=== PATIENT | male | born 1990 | race Caucasian/White ===

== ENCOUNTER → 2018-01-27 | Outpatient (CLI) | payer OTHER ==
[2018-01-27 11:04] LABS: Basophils % (A) 1 %; Eosinophils # (A) 0.3 k/uL (0-0.7); Eosinophils % (A) 4 %; HCT 49.5 % (39.0-53.0); Lymphocytes # (A) 2.1 k/uL (1.0-4.8); Lymphocytes % (A) 32 %; MCH 31.5 pg (25.0-35.0); MCHC 34.3 g/dL (31.0-37.0); MCV 91.9 fL (80.0-100.0); Mean Platelet Volume 6.7; Monocytes # (A) 0.7 k/uL (0-1.0); Monocytes % (A) 10 %; Neutrophils # (A) 3.3 k/uL (1.3-7.7); Neutrophils % (A) 50 %; Platelet Count 217 k/uL (150-450); RBC 5.38 m/uL (4.30-5.90); RDW 13.7 % (11.5-15.5); WBC 6.6 k/uL (3.8-10.6)
[2018-01-27 11:30] LABS: ALT 51 U/L (21-72); AST 51 U/L (17-59); Albumin 4.7 g/dL (3.5-5.0); Alkaline Phosphatase 61 U/L (38-126); Anion Gap 15 mmol/L; Blood Urea Nitrogen 16 mg/dL (9-20); Calcium 10.3 mg/dL (8.4-10.2); Carbon Dioxide 30 mmol/L (22-30); Chloride 100 mmol/L (98-107); Cholesterol 214 mg/dL (<200); GGT 57 U/L (15-73); Glucose 120 mg/dL (74-99); HDL Cholesterol 42 mg/dL (40-60); LDH 417 U/L (313-618); LDL Cholesterol,Calculated 129 mg/dL (0-99); Potassium 3.8 mmol/L (3.5-5.1); Sodium 145 mmol/L (137-145); Total Bilirubin 1.2 mg/dL (0.2-1.3); Total Protein 7.9 g/dL (6.3-8.2); Triglycerides 214 mg/dL (<150)
[2018-01-27 11:38] LABS: Appearance,Urine Clear (Clear); Bilirubin,Urine Negative (Negative); Blood,Urine Negative (Negative); Color,Urine Yellow; Glucose,Urine (UA) Negative (Negative); Ketones,Urine Negative (Negative); Leukocyte Esterase,Urine Negative (Negative); Mucus,Urine Many /hpf; Nitrite,Urine Negative (Negative); PH, Urine 7.5 (5.0-8.0); Protein,Urine 1+ (Negative); RBC,Urine 1 /hpf (0-5); Specific Gravity,Urine 1.029 (1.001-1.035); Squamous Epithelial Cell,Urine <1 /hpf (0-4); WBC,Urine 1 /hpf (0-5)
[2018-01-29 01:40] LABS: Hemoglobin A1C 5.5 % (4.0-6.0)
== END | disposition home or self-care (01) ==
LOC: LABWHC1 10:31
PROVIDERS: ATTEND Psychiatry & Neurology Psychiatry
DX: F25.9 Schizoaffective disorder, unspecified (principal); Z79.899 Other long term (current) drug therapy
CPT/HCPCS: 36415; 80053; 80061; 81001; 82977; 83036; 83525; 83615; 84146; 84702; 85025

== ENCOUNTER 2022-08-28 19:36 | Inpatient (IN) | payer BC, MEDICAID ==
[2022-08-28] MEDS ORDERED: ZIPRASIDONE 20 MG VIAL IM STA (20:25)
--- NOTE | 2022-08-28 20:40 | ED ---
Psych HPI - General Chief Complaint: Psychiatric Symptoms Stated Complaint: Mental Health Time Seen by Provider: 08/28/22 19:53 Source: patient, family, RN notes reviewed Mode of arrival: ambulatory - History of Present Illness Initial Comments: Patient is a 32-year-old male who is brought to the emergency department by his father for worsening manic behavior and paranoid delusions. He has not been here in the hospital for approximately 8 years as he has been doing well and was taking his medication. His father reports that he was taking his medication up until approximately 3 months ago though further discussion with [facility] reveals that he has not been established there for approximately 1 year and has not resumed his Abilify injections though stating that he restarted taking the medication 2 days ago. He admits to alcohol ingestion approximately 4-6 shots prior to coming to the hospital today. He has been evaluated multiple times here at this facility in the past and I been diagnosed with schizophrenia versus rule out bipolar disorder with psychosis. Along with possible alcohol abuse disorder. He has no other significant past medical history with the exc eption of his mental health diagnoses. - Related Data Home Medications Medication Instructions Recorded Confirmed ARIPiprazole [Abilify] 400 mg IM DIRECTED 01/11/15 06/10/18 Atenolol/Chlorthalidone 1 each PO DAILY 04/07/18 06/10/18 [Atenolol-Chlorthalidone 50-25] lisinopriL [Zestril] 5 mg PO DAILY 04/07/18 06/10/18 Allergies Allergy/AdvReac Type Severity Reaction Status Date / Time No Known Allergies Allergy Verified 08/28/22 19:42 Review of Systems ROS Statement: Those systems with pertinent positive or pertinent negative responses have been documented in the HPI. ROS Other: All systems not noted in ROS Statement are negative. Past Medical History Past Medical History: No Reported History History of Any Multi-Drug Resistant Organisms: None Reported Past Surgical History: No Surgical Hx Reported Past Anesthesia/Blood Transfusion Reactions: No Reported Reaction Past Psychological History: Anxiety, Bipolar, Depression, Schizophrenia Smoking Status: Never smoker Past Alcohol Use History: Heavy Past Drug Use History: None Reported General Exam Limitations: no limitations General appearance: alert, in no apparent distress, appears intoxicated Head exam: Present: atraumatic, normocephalic, normal inspection Eye exam: Present: normal appearance, PERRL. Absent: scleral icterus, conjunctival injection, periorbital swelling ENT exam: Present: normal exam, mucous membranes moist Neck exam: Present: normal inspection. Absent: tenderness, meningismus, ly mphadenopathy Respiratory exam: Present: normal lung sounds bilaterally. Absent: respiratory distress, wheezes, rales, rhonchi, stridor Cardiovascular Exam: Present: regular rate, normal rhythm, normal heart sounds. Absent: systolic murmur, diastolic murmur, rubs, gallop, clicks GI/Abdominal exam: Present: soft, normal bowel sounds. Absent: distended, tenderness, guarding, rebound, rigid Rectal exam: Present: deferred Extremities exam: Present: normal inspection. Absent: pedal edema, joint swelling Back exam: Present: normal inspection Neurological exam: Present: alert, oriented X3, CN II-XII intact Expanded Focused psych exam: Present: paranoid, restlessness, flight of ideas Skin exam: Present: warm, dry, intact, normal color. Absent: rash Course Vital Signs 08/28/22 08/28/22 19:42 20:01 Temperature 97.7 F Pulse Rate 110 H 68 Respiratory 16 16 Rate Blood Pressure 167/108 145/68 O2 Sat by Pulse 98 99 Oximetry Medical Decision Making - Medical Decision Making Patient is a 32-year-old male presents to the emergency room for paranoid delusions and occasional aggressive behavior. He is brought in by his father. He has been off of his psychiatric medications for approximately 1 year. Patient currently intoxicated with a breath alcohol level of 0.112. Will wait for EPS evaluation until patient sober. No other medical indication for further diagnostic testing or laboratory studies this time. One sober will clear [facility] for evaluation. EPS evaluation completed once patient was sober. Patient to be admitted to mental health. Will discharge patient from the emergency room with plan for admission to mental health. Case discussed with Dr. Jiang. Disposition Clinical Impression: Psychosis, Schizophrenia, Bipolar disorder Disposition: TRANSFER TO PSYCH HOSP/UNIT Condition: Stable Is patient prescribed a controlled substance at d/c from ED?: No Referrals: None,Stated [Primary Care Provider] - 1-2 days Time of Disposition: 00:57
[2022-08-29] MEDS ORDERED: NICOTINE 21MG/24HR PATCH TRANSDERM STA ×2 (00:53→13:26)
[2022-08-29 02:53] LABS: Appearance,Urine Clear (Clear); Bilirubin,Urine Negative (Negative); Blood,Urine Negative (Negative); Color,Urine Colorless; Glucose,Urine (UA) Negative (Negative); Ketones,Urine Negative (Negative); Leukocyte Esterase,Urine Negative (Negative); Nitrite,Urine Negative (Negative); Protein,Urine Negative (Negative); Specific Gravity,Urine 1.002 (1.001-1.035); Urobilinogen,Urine <2.0 mg/dL (<2.0)
[2022-08-29 03:38] LABS: Amphetamine Screen,Urine Not Detected (NotDetected); Barbiturate Screen,Urine Not Detected (NotDetected); Benzodiazepines Screen,Urine Not Detected (NotDetected); Cocaine Screen,Urine Not Detected (NotDetected); Methadone Screen, Urine Not Detected (NotDetected); Opiate Screen,Urine Not Detected (NotDetected); Oxycodone Screen, Urine Not Detected (NotDetected); Phencyclidine Screen,Urine Not Detected (NotDetected); Tricyclic Antidepressant,Urine Not Detected (NotDetected); Urn Cannabinoid Scrn Detected (NotDetected)
[2022-08-29] MEDS ORDERED: NICOTINE 14MG/24HR PATCH TRANSDERM STA (13:20)
[2022-08-29] MEDS ORDERED: HALOPERIDOL LACTATE 5 MG/ML 1 ML VIAL IM PRN (13:57)
[2022-08-29] MEDS ORDERED: MAG HYDROX/AL HYDROX/SIMETH 30 ML CUP PO PRN (13:57)
[2022-08-29] MEDS ORDERED: ACETAMINOPHEN TAB 325 MG TAB PO PRN (13:57)
[2022-08-29] MEDS ORDERED: MAGNESIUM HYDROXIDE 2,400 MG/10 ML CUP PO PRN (13:57)
[2022-08-29] MEDS ORDERED: LORazepam 2 MG/ML INJ IM PRN (14:02)
[2022-08-29] MEDS ORDERED: haloperidoL 5 MG TAB PO PRN (14:03)
[2022-08-29] MEDS ORDERED: ARIPiprazole 5 MG TAB PO ONE (14:15)
[2022-08-29] MEDS: NICOTINE GUM (POLACRILEX) 2 MG GUM BUCCAL PRN ×2 (15:18→20:41)
[2022-08-29] MEDS: ARIPiprazole 10 MG TAB PO SCH (20:37)
[2022-08-29] MEDS: LORazepam 1 MG TAB PO PRN (23:00)
[2022-08-30] MEDS: NICOTINE GUM (POLACRILEX) 2 MG GUM BUCCAL PRN ×4 (07:59→19:59)
[2022-08-30] MEDS: NICOTINE 14MG/24HR PATCH TRANSDERM SCH (07:59)
[2022-08-30] MEDS ORDERED: ARIPiprazole 5 MG TAB PO SCH (09:00)
[2022-08-30 10:13] LABS: Basophils % (A) 0 %; Eosinophils # (A) 0.1 k/uL (0-0.7); Eosinophils % (A) 1 %; HCT 43.3 % (39.0-53.0); HGB 14.5 gm/dL (13.0-17.5); Lymphocytes # (A) 0.8 k/uL (1.0-4.8); Lymphocytes % (A) 14 %; MCH 30.5 pg (25.0-35.0); MCHC 33.4 g/dL (31.0-37.0); MCV 91.1 fL (80.0-100.0); Mean Platelet Volume 7.1; Monocytes # (A) 0.4 k/uL (0-1.0); Monocytes % (A) 7 %; Neutrophils # (A) 4.3 k/uL (1.3-7.7); Neutrophils % (A) 76 %; Platelet Count 238 k/uL (150-450); RBC 4.75 m/uL (4.30-5.90); RDW 13.2 % (11.5-15.5); WBC 5.7 k/uL (3.8-10.6)
[2022-08-30 10:23] LABS: ALT 17 U/L (4-49); AST 27 U/L (17-59); African American GFR (CKD) >90 (>60 ml/min/1.73 sqM); Albumin 4.6 g/dL (3.5-5.0); Alkaline Phosphatase 61 U/L (38-126); Anion Gap 11 mmol/L; Blood Urea Nitrogen 9 mg/dL (9-20); Calcium 9.5 mg/dL (8.4-10.2); Carbon Dioxide 28 mmol/L (22-30); Chloride 100 mmol/L (98-107); Glucose 156 mg/dL (74-99); Non-African American GFR(CKD) >90 (>60 ml/min/1.73 sqM); Potassium 4.1 mmol/L (3.5-5.1); Sodium 139 mmol/L (137-145); Total Bilirubin 1.1 mg/dL (0.2-1.3); Total Protein 7.1 g/dL (6.3-8.2)
--- NOTE | 2022-08-30 14:25 | P.HP ---
Psychiatric H&P - . H&P Date: 08/29/22 History & Physical: IDENTIFYING DATA: Patient is a single 32 year old male who was admitted to the MHU after presenting to the ER by his father for worsening manic and psychotic symptoms. HPI: Patient presented to the hospital on 08/28/2022 with his father due to worsening manic behavior and paranoid delusions. He was previously hospitalized here in 2013 and reportedly had been doing well since then on regime on monthly Abilify Maintena injections, until approximately three months ago. His father petitioned him and included an attached page with several examples of patient's bizarre behaviors, as well as a video shown to nurses of patient's erratic behaviors while in the car. Per petition by father, patient was paranoid that he had asbestos in the murguia of his apartment, that his [employer] clients were being abused by an elderly businessman, has a woman do "witchcraft" and "cast a spell" in his apartment, believed he was going to change the world with Vitamin D, stated his landlord was trying to get a neighbor into his apartment to perform witchcraft in his apartment to try to drive him away, believes someone at [employer] was trying to get him fired, yelling at family in the car while they were driving him and telling them they are going to hell, tried jumping out of a moving car twice, and crawled through the sunroof of the car. On my assessment on 08/30/2022, patient appears irritable, anxious, argumentative, intrusive, paranoid and frequently contradicts himself. He has poor insight and judgment. He is a fair historian, and appears to be minimizing the severity of his psychotic symptoms in order to be discharged. He insists he does not need to be hospitalized here and can be discharged so he can go to his mental health appointment on Wednesday. He then repeatedly requests to be transferred to [facility]. He is difficult to redirect, continues to focus on transferring to [facility]. His reasoning seems irrational, he eventually reports he knows someone who works here, gives the name of the person to the nurse here who reports noone by that name works here. At this time, patient denies any suicidal or homicidal ideations intent or plan. At this time, patient denies any auditory or visual hallucinations. He express paranoid ideations, and states several times "something isn't right here, something isn't right here, I need to leave..." Patient admits to using marijuana and Kratom, but does not elaborate on use. 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 Patient reports he has been getting his Abilify Maintena 400 mg IM injection every month until about 3 months ago. He received his May injection, but missed his June and July injections, which he states was due to being "tight on money", but reports he received an Abilify Maintenna 400 mg IM in the past week (exact date of injection not known at this time) without oral Abilify supplementation. He started to show bizarre behaviors at work and reports [employer] has recommended to him that he take FMLA. On discussing voluntary vs involuntary admission, he continued to be argumentative and refused to sign the formal voluntary application. PAST PSYCHIATRIC HISTORY: Past diagnosis with bipolar and schizophrenia. Past medications: Abilify, Abilify Maintena, Seroquel, [place], Celexa, Lexapro, Risperdal, lamictal Psychiatric outpatient follow-up: [facility] ([facility]), previously with Dr. Marin at [employer] Suicide attempts: 2002 (overdose on Seroquel while using alcohol) PMH: Past Medical History: No Reported History History of Any Multi-Drug Resistant Organisms: None Reported Past Surgical History: No Surgical Hx Reported Past Anesthesia/Blood Transfusion Reactions: No Reported Reaction Past Psychological History: Anxiety, Bipolar, Depression, Schizophrenia Smoking Status: Never smoker Past Alcohol Use History: Heavy Past Drug Use History: None Reported ALLERGIES: as per EMR CHEMICAL DEPENDENCY HISTORY: Per records, he has a history of heavy alcohol abuse. He also admits to recent marjuana use as well as synthetic marijuan. UDS is positive for THC. FAMILY PSYCHIATRIC/SUBSTANCE USE HISTORY: Not known at this time. 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 Arrested twice for DUIs in his early 20's, reports he does not have a moving van driver's license for this reason. Also has a history of breaking/entering charge and probation violation. Attended college for psychology at [employer] MENTAL STATUS EXAM: General Appearance: Patient appears to be stated age, well-built, long shaggy hair with eyeglasses, fair hygiene and grooming. Behavior: Patient is seated, but is restless, intrusive, argumentative and upset. Speech: Patient's speech is fluent and pressured. Mood/Affect: Patient reports their mood is irritable, affect is congruent and labile. Suicidality/Homicidality: Patient denies having any homicidal ideation intent or plan. Denies any suicidal ideations, intent or plan . Perceptions: Patient denies any visual hallucinations and denies any auditory hallucinations. Though process: Circumstantial, derails easily, argumentative Thought content: Irrational, paranoid delusions Memory and concentration: AOX3, grossly intact for the purposes of this session. Judgment and insight: Poor STRENGTHS/WEAKNESSES: Strength is that patient is resilient, has housing and college education. Weakness is that patient has poor judgment and is impulsive. INTELLECT: Average IMPRESSIONS: Bipolar I disorder, current episode mixed with psychotic features Rule out schizoaffective disorder, bipolar type Alcohol use disorder, severe Cannabis use disorder PLAN: -Patient is admitted under involuntary status to MHU for stabilization of psychiatric symptoms and safety. Patient has NOT signed adult voluntary form. A second certification was completed and along with petition will be filed for court. He did sign the medication consent and is placed in patient's chart. -Medications: He reports he received his Abilify Maintena 400 mg IM in the past week (will need to be confirmed with his outpatient provider on Wednesday), after missing two monthly doses. Will start patient on oral Abilify 10 mg po daily for 14 days to bridge patient back onto monthly injections due to missing two monthly doses. He would also benefit from a mood stabilizer, however he is too argumentative at this time to discuss this medication. -Ativan and Haldol PRN for agitation/aggression -Patient was counselled on substance abuse and desired to cut back on use -Patient was informed of the risks, benefits and side effects of the medication and patient verbally consented to taking the medications. Patient signed med consent form and was placed in chart. -Internal Medicine consult to perform medical evaluation and physical. -NRT - not needed since he does not smoke cigarettes. -SW on board for discharge planning. Encourage patient to participate in groups to work on coping skills. Will await deferral and court date. Allergies Allergy/AdvReac Type Severity Reaction Status Date / Time No Known Allergies Allergy Verified 08/28/22 19:42 Vital Signs Temp 98.2 F 08/29/22 13:49 Pulse 68 08/28/22 20:01 Resp 18 08/29/22 13:50 BP 167/87 08/29/22 13:49 Pulse Ox 96 08/29/22 13:49 FiO2 Intake & Output 08/29/22 08/29/22 08/30/22 06:59 18:59 06:59 Weight 86.183 kg 84.6 kg Laboratory Last Values Urine Color Colorless 08/29/22 02:45 Urine Appearance Clear (Clear) 08/29/22 02:45 Urine pH 5.0 (5.0-8.0) 08/29/22 02:45 Ur Specific Minter 1.002 (1.001-1.035) 08/29/22 02:45 Urine Protein Negative (Negative) 08/29/22 02:45 Urine Glucose (UA) Negative (Negative) 08/29/22 02:45 Urine Ketones Negative (Negative) 08/29/22 02:45 Urine Blood Negative (Negative) 08/29/22 02:45 Urine Nitrite Negative (Negative) 08/29/22 02:45 Urine Bilirubin Negative (Negative) 08/29/22 02:45 Urine Urobilinogen <2.0 mg/dL (<2.0) 08/29/22 02:45 Ur Leukocyte Esterase Negative (Negative) 08/29/22 02:45 Urine Opiates Screen Not Detected (NotDetected) 08/29/22 02:45 Ur Oxycodone Screen Not Detected (NotDetected) 08/29/22 02:45 Urine Methadone Screen Not Detected (NotDetected) 08/29/22 02:45 Ur Propoxyphene Screen Not Detected (NotDetected) 08/29/22 02:45 Ur Barbiturates Screen Not Detected (NotDetected) 08/29/22 02:45 U Tricyclic Antidepress Not Detected (NotDetected) 08/29/22 02:45 Ur Phencyclidine Scrn Not Detected (NotDetected) 08/29/22 02:45 Ur Amphetamines Screen Not Detected (NotDetected) 08/29/22 02:45 U Methamphetamines Scrn Not Detected (NotDetected) 08/29/22 02:45 U Benzodiazepines Scrn Not Detected (NotDetected) 08/29/22 02:45 Urine Cocaine Screen Not Detected (NotDetected) 08/29/22 02:45 U Marijuana (THC) Screen Detected (NotDetected) H 08/29/22 02:45 Coronavirus (PCR) Not Detected (Not Detectd) 08/29/22 02:50 08/29/22 20:16 08/30/22 13:35
[2022-08-30 17:24] LABS: Chol/HDL Ratio 3.92 Ratio; LDL Cholesterol,Calculated 139.5 mg/dL (0.0-131.0)
[2022-08-30] MEDS: ARIPiprazole 10 MG TAB PO SCH (19:59)
[2022-08-30] MEDS: LORazepam 1 MG TAB PO PRN (20:26)
--- NOTE | 2022-08-30 21:01 | P.PN ---
Progress Note - Text Progress Note Date: 08/30/22 Interval history: Patient was seen wondering the hallway and was directable and agreeable to speak with food writer. He appears calmer and more cooperative today since starting oral Abilify 10mg daily in addition to his Abilify Maintena injection. Mood is improved today however affect is blunted. His thoughts are more linear and coherent today. At this time patient denies any suicidal or homicidal ideations, intent or plan. Denies any auditory or visual hallucinations. Patient denies any side effects from the medications and has been compliant with meds. He attended about half of the groups offered today and behaved appropriately in group today. He continues to be discharge focused and asks if his father can pick him up today. He inquires his work and whether he should return to work immediately after discharge and we discussed applying for FMLA. Mental status exam: General Appearance: Patient appears to be stated age, well-built, long shaggy hair with eyeglasses, improved hygiene and grooming. Behavior: Patient is calmer today but continues to be discharge focused and somewhat intrusive. Speech: Patient's speech is fluent and non-pressured. Mood/Affect: Patient reports their mood is improved, affect is congruent and blunted. Suicidality/Homicidality: Patient denies having any homicidal ideation intent or plan. Denies any suicidal ideations, intent or plan . Perceptions: Patient denies any visual hallucinations and denies any auditory hallucinations. Though process: More linear and coherent than yesterday Thought content: More rational and goal-directed, not argumentative like yesterday, discharge focused. Memory and concentration: AOX3, grossly intact for the purposes of this session. Judgment and insight: improving mildly Assessment/Plan: Continue with current diagnosis. Patient continues to meet criteria for inpatient psychiatric admission for symptom stabilization and safety. Patient will be maintained on current psychotropic medication regimen. Monitor for medication compliance and for any psychotropic medication side effects. Will continue to monitor ongoing response to treatment. Encouraged participation in milieu.
[2022-08-31] MEDS: NICOTINE GUM (POLACRILEX) 2 MG GUM BUCCAL PRN ×6 (02:28→20:25)
--- NOTE | 2022-08-31 02:36 | P.HPIM ---
History of Present Illness H&P Date: 08/31/22 Chief Complaint: Medical evaluation 32-year-old male with history of bipolar disorder Patient comes in for evaluation due to manic episode patient is known to have bipolar disorder, statin was having bizarre behavior with concerns regarding acute psychosis. Otherwise patient denies any suicidal ideation denies any fevers chills coughing nausea vomiting abdominal pain diarrhea denies any abdominal pain chest pain or trouble breathing Blood work reviewed showed hyperlipidemia Review of Systems Pertinent positives as noted in HPI. All other systems were reviewed and are negative Past Medical History Past Medical History: Hypertension History of Any Multi-Drug Resistant Organisms: None Reported Past Surgical History: No Surgical Hx Reported Past Anesthesia/Blood Transfusion Reactions: No Reported Reaction Past Psychological History: Anxiety, Bipolar, Depression, Schizophrenia Smoking Status: Vaper Past Alcohol Use History: Heavy Additional Past Alcohol Use History / Comment(s): Teo reports, "I am an alcoholic and it often gets me in trouble". Past Drug Use History: None Reported - Past Family History Family Additional Family Medical History / Comment(s): Denies any history of CAD Medications and Allergies Home Medications Medication Instructions Recorded Confirmed Type ARIPiprazole [Abilify] 400 mg IM DIRECTED 01/11/15 08/30/22 History lisinopriL [Zestril] 5 mg PO DAILY 04/07/18 08/30/22 History Allergies Allergy/AdvReac Type Severity Reaction Status Date / Time No Known Allergies Allergy Verified 08/28/22 19:42 Physical Exam Vitals: Vital Signs Pulse Resp BP 08/30/22 08:02 108 H 18 135/84 Intake and Output 08/30/22 08/30/22 08/31/22 14:59 22:59 06:59 Other: Weight 84.4 kg Constitutional: No acute distress, conversant, pleasant Eyes: Anicteric sclerae, moist conjunctiva, Pupils equal round reactive to light ENMT: NC/AT Oropharynx clear, no erythema, or exudates Neck: Supple, FROM, no masses, or JVD No carotid bruits No thyromegaly Lungs: Clear to auscultation Clear to percussion Normal respiratory effort, no accessory muscle use Cardiovascular: Heart regular in rate and rhythm, No murmurs, gallops, or rubs No peripheral edema Abdominal: Soft Nontender, no guarding, rebound or rigidity Abdomen moving with respiration Normoactive bowel sounds No hepatomegaly, No splenomegaly No palpable mass No abdominal wall hernia noted Skin: Normal temperature, tone, texture, turgor No induration No subcutaneous nodules No rash, lesions No ulcers Extremities: No digital cyanosis No clubbing Pedal pulses intact and symmetrical Radial pulses intact and symmetrical No calf tenderness Psychiatric: Alert and oriented to person, place and time Appropriate affect fair judgement Neuro Muscles Strength 5/5 in all 4 extremities Sensation to light touch grossly present throughout Cranial nerves II-XII grossly intact No focal sensory deficits Lymphatics: no palpable cervical or supraclavicular , or inguinal lymph nodes Results CBC & Chem 7: 08/30/22 09:49 08/30/22 09:49 Labs: Abnormal Lab Results - Last 24 Hours (Table) 08/30/22 08/30/22 Range/Units 09:49 09:49 Lymphocytes # 0.8 L (1.0-4.8) k/uL Glucose 156 H (74-99) mg/dL Cholesterol 216.00 H (0.00-200.00) mg/dL LDL Cholesterol, Calc 139.5 H (0.0-131.0) mg/dL Thrombosis Risk Factor Assmnt - Choose All That Apply Any of the Below Risk Factors Present?: No Assessment and Plan Assessment: Manic episode bipolar disorder Management per psych Hyperlipidemia Counseled regarding lifestyle modification and diet to control and exercising Follow up in 3 months and lipid profile palpation Polysubstance abuse Patient admits today pending nicotine Patient admits to regular use of marijuana Patient drinking of alcohol Patient counseled regarding substance abuse Labs reviewed Thank you for allowing us to participate in the care of this patient. We will follow peripherally. Do not hesitate to contact us with questions. Someone can be reached from the [facility] hospitalist group at all hours of the day at [phone].
[2022-08-31] MEDS: NICOTINE 14MG/24HR PATCH TRANSDERM SCH (07:43)
--- NOTE | 2022-08-31 12:01 | P.PN ---
Progress Note - Text Progress Note Date: 08/31/22 Interval History: Patient was seen wandering the hallways and was directable and agreeable to speak with magnetic tape typewriter operator in the office. The patient is reporting that he is feeling better. He is currently not reporting any psychotic symptoms and is denying any mood symptoms. He reports no suicidal or homicidal ideation, intention, and/or plan. He denies any auditory or visual hallucinations. He reports no paranoia or delusions. He states that he is sleeping and eating well. He is in agreement to go up on his Abilify as well. The patient plans to defer mental health court. Mental Status Exam: General Appearance: Patient appears to be stated age is alert, directable, and cooperative. Behavior: Patient is calmly seated without any agitated behavior. Speech: Patient's speech is fluent and nonpressured. Mood/Affect: Mood is improving mildly, affect is congruent and constricted. Suicidality/Homicidality: Patient denies having any suicidal or homicidal ideation intent or plan. Perceptions: Patient denies any visual hallucinations and denies any auditory hallucinations Though content/process: There is no evidence of any delusional thought content and thought process is linear and goal-directed. Memory and concentration: AOX3, grossly intact for the purposes of this session Judgment and insight: Improving mildly Vital Signs Temp 97.7 F 08/31/22 04:44 Pulse 101 H 08/31/22 04:44 Resp 18 08/31/22 04:44 BP 144/86 08/31/22 04:44 Pulse Ox 99 08/31/22 04:44 FiO2 Intake & Output 08/30/22 08/31/22 08/31/22 18:59 06:59 18:59 Weight 84.4 kg Laboratory Results - Last 24 Hours 08/30/22 08/30/22 09:49 09:[address] Glu mg/dL 113 Hemoglobin A1c 5.6 Triglycerides 107.00 Cholesterol 216.00 H LDL Cholesterol, Calc 139.5 H VLDL Cholesterol, Calc 21.40 HDL Cholesterol 55.10 Cholesterol/HDL Ratio 3.92 Assessment Bipolar I disorder, current episode mixed with psychotic features Rule out schizoaffective disorder, bipolar type Alcohol use disorder, severe Cannabis use disorder Plan: -Patient continues to meet criteria for inpatient psychiatric admission for symptom stabilization and safety. Patient has been petition certified but wishes to defer mental health court. -Medications: Increase Abilify to 20 mg by mouth daily for mood stabilization. Abilify maintena 400 mg IM was administered in july. -When necessary Ativan and Haldol for agitation/aggression. -NRT - nicotine patch -SW on board for discharge planning. Encouraged the patient to participate in milieu.
[2022-09-01] MEDS: NICOTINE GUM (POLACRILEX) 2 MG GUM BUCCAL PRN ×3 (07:10→12:59)
[2022-09-01] MEDS: NICOTINE 14MG/24HR PATCH TRANSDERM SCH (09:13)
--- NOTE | 2022-09-01 11:11 | P.PN ---
Progress Note - Text Progress Note Date: 09/01/22 Interval History: Patient was seen wandering the hallways and was directable and agreeable to speak with automobile and property underwriter in the office. The patient currently denying any suicidal or homicidal ideation, intention, and/or plan. He is not reporting any auditory or visual hallucinations. He is denying any paranoia or other delusions. The patient has been adherent with his medication is not endorsing any significant side effects. He denies any medical issues or concerns and reports no chest pain, sinus breath, or palpitations. The patient continues to desire to defer mental health court and is currently waiting for an disability attorney. Mental Status Exam: Grossly unchanged from yesterday General Appearance: Patient appears to be stated age is alert, directable, and cooperative. Behavior: Patient is calmly seated without any agitated behavior. Speech: Patient's speech is fluent and nonpressured. Mood/Affect: Mood is improving mildly, affect is congruent and constricted. Suicidality/Homicidality: Patient denies having any suicidal or homicidal ideation intent or plan. Perceptions: Patient denies any visual hallucinations and denies any auditory hallucinations Though content/process: There is no evidence of any delusional thought content and thought process is linear and goal-directed. Memory and concentration: AOX3, grossly intact for the purposes of this session Judgment and insight: Improving mildly Vital Signs Temp 97.6 F 09/01/22 04:25 Pulse 75 09/01/22 04:25 Resp 18 09/01/22 04:25 BP 141/67 09/01/22 04:25 Pulse Ox 98 09/01/22 04:25 FiO2 Assessment Bipolar I disorder, current episode mixed with psychotic features Rule out schizoaffective disorder, bipolar type Alcohol use disorder, severe Cannabis use disorder Plan: -Patient continues to meet criteria for inpatient psychiatric admission for symptom stabilization and safety. Patient has been petition certified but wishes to defer mental health court. -Medications: Continue Abilify 20 mg by mouth daily for mood stabilization. Abilify maintena 400 mg IM was administered in july. -When necessary Ativan and Haldol for agitation/aggression. -NRT - nicotine patch -SW on board for discharge planning. Encouraged the patient to participate in milieu.
--- NOTE | 2022-09-01 17:29 | P.MHFACE ---
Face to Face Restrain/Seclus - Evaluation Patient's Immediate Situation: Endangers self safety, Endangers others' safety, Endangers staff safety, Violent behavior Patient's Reaction to the Intervention: Appropriate, Angry Patient's Medical & Behavioral Condition: Awake, Alert, Follows directions Need to Continue or Terminate Restraint or Seclusion: Continue Need to Continue or Terminate Restraint/Seclusion - Comment: CONTINUE Face to Face Eval of Restraint Date: 09/01/22 Face to Face Eval of Restraint Time: 17:28
[2022-09-01] MEDS ORDERED: LORazepam 2 MG/ML INJ IM PRN (18:02)
[2022-09-01] MEDS ORDERED: HALOPERIDOL LACTATE 5 MG/ML 1 ML VIAL IM PRN (18:02)
[2022-09-02] MEDS: NICOTINE 14MG/24HR PATCH TRANSDERM SCH (08:08)
[2022-09-02] MEDS: NICOTINE GUM (POLACRILEX) 2 MG GUM BUCCAL PRN ×7 (08:09→22:36)
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
[2022-09-02] MEDS: LORazepam 1 MG TAB PO PRN (21:33)
[2022-09-03 04:28] VITALS: BP 131/75; PULSE 87; RESP 14; TEMP 97.2
[2022-09-03] MEDS: NICOTINE GUM (POLACRILEX) 2 MG GUM BUCCAL PRN (07:10)
[2022-09-03] MEDS: NICOTINE 14MG/24HR PATCH TRANSDERM SCH (07:49)
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
== END 2022-09-03 11:50 | disposition home or self-care (01) | DRG 885 ==
LOC: EC 19:36 → 3MHU 08-29 13:48
PROVIDERS: ADMIT Psychiatry & Neurology Psychiatry; ATTEND Psychiatry & Neurology Psychiatry
DX: F31.64 Bipolar disorder, current episode mixed, severe, with psychotic features (principal); F29 Unspecified psychosis not due to a substance or known physiological condition; E78.5 Hyperlipidemia, unspecified; F12.90 Cannabis use, unspecified, uncomplicated; F41.9 Anxiety disorder, unspecified; I10 Essential (primary) hypertension; Y90.5 Blood alcohol level of 100-119 mg/100 ml; F10.229 Alcohol dependence with intoxication, unspecified; Z78.1 Physical restraint status; Z79.899 Other long term (current) drug therapy; Z20.822 Contact with and (suspected) exposure to COVID-19
CPT/HCPCS: 80053; 80061; 80306; 81003; 82075; 83036; 85025; 87635; 99285

== ENCOUNTER 2024-03-26 23:01 | Inpatient (IN) | payer BC, MEDICAID ==
--- NOTE | 2024-03-27 03:11 | ED ---
Psych HPI - General Chief Complaint: Psychiatric Symptoms Stated Complaint: petition Time Seen by Provider: 03/26/24 23:10 Source: patient Mode of arrival: ambulatory - History of Present Illness Initial Comments: 33-year-old male brought into the emergency department for mental health evaluation. Patient is being petitioned by his father. It is reported that the patient's behavior is erratic. He had stolen some guns from his father and was stating that he was going to hold up the [employer]. Father was able to get his items back. He was able to coax the patient into coming up to the emergency department to be evaluated. Father states that the patient does not like to take his medications. Patient to me is denying all of this. He denies being suicidal or homicidal. He does admit to alcohol use. - Related Data Previous Rx's Medication Instructions Recorded ARIPiprazole IM [Abilify Maintena] 400 mg IM QMONTHLY #1 each 03/29/24 Divalproex ER [Depakote ER] 1,000 mg PO HS 30 Days #60 tab 03/29/24 Escitalopram [Lexapro] 10 mg PO DAILY 30 Days #30 tab 03/29/24 Naltrexone HCl [Revia] 50 mg PO DAILY 30 Days #30 tab 03/29/24 Nicotine 14Mg/24Hr Patch [Habitrol] 1 patch TRANSDERM DAILY 14 Days 03/29/24 #14 patch Allergies Allergy/AdvReac Type Severity Reaction Status Date / Time No Known Allergies Allergy Verified 03/27/24 06:29 Review of Systems ROS Statement: Those systems with pertinent positive or pertinent negative responses have been documented in the HPI. ROS Other: All systems not noted in ROS Statement are negative. Past Medical History Past Medical History: Hypertension History of Any Multi-Drug Resistant Organisms: None Reported Past Surgical History: No Surgical Hx Reported Past Anesthesia/Blood Transfusion Reactions: No Reported Reaction Past Psychological History: Anxiety, Bipolar, Depression, Schizophrenia Smoking Status: Vaper Past Alcohol Use History: Rare Past Drug Use History: None Reported - Past Family History Family Additional Family Medical History / Comment(s): Denies any history of CAD General Exam General appearance: alert, in no apparent distress Head exam: Present: atraumatic, normocephalic, normal inspection Eye exam: Present: normal appearance, PERRL, EOMI. Absent: scleral icterus, conjunctival injection, periorbital swelling ENT exam: Present: normal exam, mucous membranes moist Neck exam: Present: normal inspection. Absent: tenderness, meningismus, lymphadenopathy Respiratory exam: Present: normal lung sounds bilaterally. Absent: respiratory distress, wheezes, rales, rhonchi, stridor Cardiovascular Exam: Present: normal rhythm, tachycardia, normal heart sounds. Absent: systolic murmur, diastolic murmur, rubs, gallop, clicks GI/Abdominal exam: Present: soft, normal bowel sounds. Absent: distended, tenderness, guarding, rebound, rigid Extremities exam: Present: normal inspection, full ROM, normal capillary refill. Absent: tenderness, pedal edema, joint swelling, calf tenderness Back exam: Present: normal inspection Neurological exam: Present: alert, oriented X3, CN II-XII intact Psychiatric exam: Present: normal affect, normal mood Skin exam: Present: warm, dry, intact, normal color. Absent: rash Course Vital Signs 03/26/24 03/27/24 23:06 04:36 Temperature 98.0 F 98.0 F Pulse Rate 113 H 86 Respiratory 19 16 Rate Blood Pressure 126/85 132/79 O2 Sat by Pulse 100 96 Oximetry Medical Decision Making - Medical Decision Making Was pt. sent in by a medical professional or institution (, PA, SERVICE COORDINATOR, urgent care, hospital, or longterm...) When possible be specific @ -No Did you speak to anyone other than the patient for history (EMS, parent, family, police, friend...)? What history was obtained from this source @ -No Did you review nursing and triage notes (agree or disagree)? Why? @ -I reviewed and agree with nursing and triage notes Were old charts reviewed (outside hosp., previous admission, EMS record, old EKG, old radiological studies, urgent care reports/EKG's, longterm records)? Report findings @ -I reviewed the petition on the patient Differential Diagnosis (chest pain, altered mental status, abdominal pain women, abdominal pain men, vaginal bleeding, weakness, fever, dyspnea, syncope, headache, dizziness, GI bleed, back pain, seizure, CVA, palpatations, mental health, musculoskeletal)? @ -[Differential Mental Health Depression, anxiety, bipolar, psychosis, schizophrenia, borderline personality, situational depression, adjustment disorder, behavioral disorder, brain tumor, malingering, substance abuse, encephalopathy, medication reaction, dementia, hypothyroidism, degenerative neurologic disorder, lupus.... This is not meant to be all-inclusive list EKG interpreted by me (3pts min.). @ -Not done X-rays interpreted by me (1pt min.). @ -None done CT interpreted by me (1pt min.). @ -None done U/S interpreted by me (1pt. min.). @ -None done What testing was considered but not performed or refused? (CT, X-rays, U/S, labs)? Why? @ -None What meds were considered but not given or refused? Why? @ -None Did you discuss the management of the patient with other professionals (professionals i.e. , PA, SERVICE COORDINATOR, lab, RT, psych nurse, social service technician, director security management, teacher, medical corps officer, pillowcase cutter)? Give summary @ -Spoke with the EPS nurse Was smoking cessation discussed for >3mins.? @ -No Was critical care preformed (if so, how long)? @ -No Were there social determinants of health that impacted care today? How? (Homelessness, low income, unemployed, alcoholism, drug addiction, transportation, low edu. Level, literacy, decrease access to med. care, [facility] [facility], rehab)? @ -No Was there de-escalation of care discussed even if they declined (Discuss DNR or withdrawal of care, Hospice)? DNR status @ -No What co-morbidities impacted this encounter? (DM, HTN, Smoking, COPD, CAD, Cancer, CVA, ARF, Chemo, Hep., AIDS, mental health diagnosis, sleep apnea, morbid obesity)? @ -None Was patient admitted / discharged? Hospital course, mention meds given and route, prescriptions, significant lab abnormalities, going to OR and other pert inent info. @ -Upon arrival patient was seen and evaluated in room 14. Thorough history and physical exam was performed. Patient is cleared for EPS evaluation. EPS to evaluate the patient. They feel that the patient requires admission. I do feel that a certification of the patient that he is taken to the floor in stable condition Undiagnosed new problem with uncertain prognosis? @ -No Drug Therapy requiring intensive monitoring for toxicity (Heparin, Nitro, Insulin, Cardizem)? @ -No Were any procedures done? @ -No Diagnosis/symptom? @ -Bipolar disorder, medication noncompliance Acute, or Chronic, or Acute on Chronic? @ -Acute Uncomplicated (without systemic symptoms) or Complicated (systemic symptoms)? @ -Complicated Side effects of treatment? @ -No Exacerbation, Progression, or Severe Exacerbation? @ -No Poses a threat to life or bodily function? How? (Chest pain, USA, DC, pneumonia, PE, COPD, DKA, ARF, appy, cholecystitis, CVA, Diverticulitis, Homicidal, Suicidal, threat to staff... and all critical care pts) @ -No - Lab Data Result diagrams: 03/27/24 12:17 03/27/24 12:17 Lab Results 03/27/24 Range/Units 04:35 Influenza Type A (PCR) Not Detected (Not Detectd) Influenza Type B (PCR) Not Detected (Not Detectd) RSV (PCR) Not Detected (Not Detectd) SARS-CoV-2 (PCR) Not Detected (Not Detectd) Disposition Clinical Impression: Nonadherence to medication, Bipolar disorder Disposition: ADMITTED IP TO THIS HOSP Condition: Stable Is patient prescribed a controlled substance at d/c from ED?: No
[2024-03-27] MEDS ORDERED: ACETAMINOPHEN TAB 325 MG TAB PO PRN (05:38)
[2024-03-27] MEDS ORDERED: LORazepam 2 MG/ML INJ IM PRN (05:38)
[2024-03-27] MEDS ORDERED: IBUPROFEN 600 MG TAB PO PRN (05:38)
[2024-03-27] MEDS ORDERED: HALOPERIDOL LACTATE 5 MG/ML 1 ML VIAL IM PRN (05:38)
[2024-03-27] MEDS ORDERED: MAGNESIUM HYDROXIDE 2,400 MG/30 ML CUP PO PRN (05:38)
[2024-03-27] MEDS ORDERED: LORazepam 1 MG TAB PO PRN (05:38)
[2024-03-27] MEDS ORDERED: haloperidoL 5 MG TAB PO PRN (05:38)
[2024-03-27] MEDS ORDERED: MAG HYDROX/AL HYDROX/SIMETH 355 ML BOTTLE PO PRN (08:00)
[2024-03-27] MEDS: NICOTINE 14MG/24HR PATCH TRANSDERM SCH (10:03)
[2024-03-27] MEDS: lisinopriL 5 MG TAB PO SCH (10:04)
--- NOTE | 2024-03-27 12:15 | P.MDCNMH ---
History of Present Illness H&P Date: 03/27/24 Chief Complaint: Behavioral issues * 33-year-old gentleman with past medical history significant for bipolar disorder, history of hypertension presents to the emergency department with a petition secondary to psychiatric symptoms. * Patient was admitted to behavioral health unit for further management. * Workup initiated at the time of admission included testing for RSV, COVID and influenza which was negative * Other blood work including CBC, comprehensive metabolic panel lipid panel and thyroid function pending REVIEW OF SYSTEMS: CONSTITUTIONAL: No fever, no malaise, no fatigue. HEENT: No recent visual problems or hearing problems. Denied any sore throat. CARDIOVASCULAR: No chest pain, orthopnea, PND, no palpitations, no syncope. PULMONARY: No shortness of breath, no cough, no hemoptysis. GASTROINTESTINAL: No diarrhea, no nausea, no vomiting, no abdominal pain. NEUROLOGICAL: No headaches, no weakness, no numbness. HEMATOLOGICAL: Denies any bleeding or petechiae. GENITOURINARY: Denies any burning micturition, frequency, or urgency. MUSCULOSKELETAL/RHEUMATOLOGICAL: Denies any joint pain, swelling, or any muscle pain. ENDOCRINE: Denies any polyuria or polydipsia. The rest of the 14-point review of systems is negative. PHYSICAL EXAMINATION: GENERAL: The patient is alert and oriented x3, not in any acute distress. Well developed, well nourished. HEENT: Pupils are round and equally reacting to light. EOMI. No scleral icterus. No conjunctival pallor. Normocephalic, atraumatic. No pharyngeal erythema. No thyromegaly. CARDIOVASCULAR: S1 and S2 present. No murmurs, rubs, or gallops. PULMONARY: Chest is clear to auscultation, no wheezing or crackles. ABDOMEN: Soft, nontender, nondistended, normoactive bowel sounds. No palpable organomegaly. MUSCULOSKELETAL: No joint swelling or deformity. EXTREMITIES: No cyanosis, clubbing, or pedal edema. NEUROLOGICAL: Gross neurological examination did not reveal any focal deficits. SKIN: No rashes. Assessment and plan * Bipolar disorder with worsening symptoms * Hypertension * tobacco use * In regards to bipolar disorder continue management and behavioral health unit continue to maintain maximum safety precaution * Regards to history of hypertension , patient states he has not been taking medications at home hence lisinopril * In regards to history of tobacco use continue nicotine patch Past Medical History Past Medical History: Hypertension History of Any Multi-Drug Resistant Organisms: None Reported Past Surgical History: No Surgical Hx Reported Past Anesthesia/Blood Transfusion Reactions: No Reported Reaction Past Psychological History: Anxiety, Bipolar, Depression, Schizophrenia Smoking Status: Vaper Past Alcohol Use History: Rare Past Drug Use History: None Reported - Past Family History Family Additional Family Medical History / Comment(s): Denies any history of CAD Medications and Allergies Home Medications Medication Instructions Recorded Confirmed Type lisinopriL [Zestril] 5 mg PO DAILY 04/07/18 08/30/22 History ARIPiprazole [Abilify] 20 mg PO HS 10 Days tab 09/03/22 Rx ARIPiprazole [Abilify] 400 mg IM DIRECTED #1 tab 09/03/22 Rx Allergies Allergy/AdvReac Type Severity Reaction Status Date / Time No Known Allergies Allergy Verified 03/27/24 06:29 Physical Exam Vitals: Vital Signs Temp Pulse Pulse Resp BP BP Pulse Ox 03/27/24 06:50 97.4 F L 78 18 131/74 97 03/27/24 04:36 98.0 F 86 16 132/79 96 03/26/24 23:06 98.0 F 113 H 19 126/85 100 Intake and Output 03/26/24 03/27/24 03/27/24 22:59 06:59 14:59 Other: Weight 85.9 kg Cranial Nerve Examination - Cranial Nerves Cranial Nerve I- Olfactory: Intact Cranial Nerve II- Optic: Intact Cranial Nerve III- Oculomotor: Intact Cranial Nerve IV- Trochlear: Intact Cranial Nerve V- Trigeminal: Intact Cranial Nerve - Abducens: Intact Cranial Nerve VII- Facial: Intact Cranial Nerve VIII- Auditory: Intact Cranial Nerve IX- Glossopharyngeal: Intact Cranial Nerve X- Vagus: Intact Cranial Nerve XI- Accessory: Intact Cranial Nerve XII- Hypoglossal: Intact
[2024-03-27] MEDS ORDERED: traZODone HCL 50 MG TAB PO PRN (12:47)
[2024-03-27 12:56] LABS: Basophils # (A) 0.1 k/uL (0-0.2); Basophils % (A) 1 %; Eosinophils # (A) 0.3 k/uL (0-0.7); Eosinophils % (A) 4 %; HCT 47.1 % (39.0-53.0); HGB 15.7 gm/dL (13.0-17.5); Lymphocytes # (A) 1.9 k/uL (1.0-4.8); Lymphocytes % (A) 26 %; MCH 30.4 pg (25.0-35.0); MCHC 33.3 g/dL (31.0-37.0); MCV 91.4 fL (80.0-100.0); Mean Platelet Volume 6.9; Monocytes # (A) 0.7 k/uL (0-1.0); Monocytes % (A) 9 %; Neutrophils # (A) 4.3 k/uL (1.3-7.7); Neutrophils % (A) 58 %; Platelet Count 268 k/uL (150-450); RBC 5.16 m/uL (4.30-5.90); RDW 13.3 % (11.5-15.5); WBC 7.5 k/uL (3.8-10.6)
[2024-03-27 13:08] LABS: ALT 11 U/L (4-49); AST 21 U/L (17-59); African American GFR (CKD) >90 (>60 ml/min/1.73 sqM); Albumin 4.2 g/dL (3.5-5.0); Alkaline Phosphatase 68 U/L (38-126); Anion Gap 6 mmol/L; Blood Urea Nitrogen 10 mg/dL (9-20); Calcium 9.4 mg/dL (8.4-10.2); Carbon Dioxide 28 mmol/L (22-30); Chloride 105 mmol/L (98-107); Glucose 83 mg/dL (74-99); Non-African American GFR(CKD) >90 (>60 ml/min/1.73 sqM); Potassium 4.8 mmol/L (3.5-5.1); Sodium 139 mmol/L (137-145); Total Bilirubin 0.9 mg/dL (0.2-1.3); Total Protein 7.1 g/dL (6.3-8.2)
--- NOTE | 2024-03-27 13:08 | P.HP ---
Psychiatric H&P - . H&P Date: 03/27/24 History & Physical: Allergies Allergy/AdvReac Type Severity Reaction Status Date / Time No Known Allergies Allergy Verified 03/27/24 06:29 Vital Signs Temp 97.4 F L 03/27/24 06:50 Pulse 78 03/27/24 06:50 Resp 18 03/27/24 06:50 BP 131/74 03/27/24 06:50 Pulse Ox 97 03/27/24 06:50 FiO2 Intake & Output 03/26/24 03/27/24 03/27/24 18:59 06:59 18:59 Weight 85.9 kg Laboratory Last Values Influenza Type A (PCR) Not Detected (Not Detectd) 03/27/24 04:35 Influenza Type B (PCR) Not Detected (Not Detectd) 03/27/24 04:35 RSV (PCR) Not Detected (Not Detectd) 03/27/24 04:35 SARS-CoV-2 (PCR) Not Detected (Not Detectd) 03/27/24 04:35 03/27/24 09:15 IDENTIFYING DATA: Patient is a 33-year-old male. Currently homeless living in a motel. Single. No children. Collects SSD HPI: Patient presented to the hospital on 03/26. As per EPS note, "Patient present on a petition completed by father. Petition states that patient "suffers severly from mental illness. he doesnt believe he is ill.... He refuses to take his medications, which led to horrific conditions in [facility]." "He stole my jeep and guns and was going to hold up a [employer] store." Per patient his dad brought him in because " got a lot of shit on my plate right now. mental health court etc. Stressful for me and my dad." Patient reports that he is currently homeless staying at the [facility]. He reports that he was at [facility] in [place] for a week prior and [facility] before that. Patient reports tonight that his dad came over to make sure he took his rx and he gretchen eked his meds. He reports that he had done it the previous day as well. he reports that he just wanted to take them later in the day as they make him sleepy. patient states he sees a therapist at [facility] and has good supports. With patients permission, This video game script writer spoke to patients father over the phone regarding the petition. Father reports patient does not believe he is mentally ill. Father reports long history of pysch hospitalizations and noncompliance with medications. Father reports patient presents very well and is able to manipulate sitautions. Father believes patient is a harm to himself and others when he is not taking his medications. Father reports a couple of weeks ago patient had stolen his guns and his jeep and had threaten to hold up a [employer]. Patient minimizes his psychatric history and his legal troubles" Upon todays assessment, patient states that everything that happened, happened weeks ago, and he has been in [facility] after that had happened. He states, "when I drink alcohol and smoke weed, I make terrible decisions" Patient states he has been sober for two weeks now. Patient states that he realizes that his mistakes are what brought him in here. He states that he "embraces his mental illness" and that he knows he needs medication to keep him stable. Patient denies any suicidal or homicidal ideations intent or plan. At this time patient denies any auditory or visual hallucinations. Patient denies any flight of ideas racing thoughts and increased in goal directed behavior. Patient states he has been sober for 2 weeks, prior to that he was drinking alcohol and smoking marijuana. He also uses a nicotine vape. PAST PSYCHIATRIC HISTORY: Patient states that he has had several inpatient stays, and that he follows up with Dr Bedoya at [facility]. He takes depakote, Abilify Mainntena, naltrexone and Lexapro. He attempted suicide in 2012 by means of OD PMH:As per ER note ALLERGIES: as per EMR CHEMICAL DEPENDENCY HISTORY: as per HPI FAMILY PSYCHIATRIC/SUBSTANCE USE HISTORY: [denies] SOCIAL HISTORY: Patient was born in [facility], and raised in [place], [place]. Patient is currently living in a motel, single, no children. Has a bachelors degree from [employer], collects disability. Currently on probation for assault and resisting and obstructing. MENTAL STATUS EXAM: General Appearance: Patient appears to be stated age is alert, [directable, and attempts to cooperate]. Patient appears to have good hygiene and grooming. Long curly hair, leiva, wearing his own clothes. Behavior: Patient is seated without any agitated behavior. [] Speech: Patient's speech is [fluent and nonpressured.] Mood/Affect: Patient reports their mood is ok, affect is congruent and constricted. Suicidality/Homicidality: Patient denies having any homicidal ideation intent or plan. [Denies any suicidal ideations intent or plan] Perceptions: Patient denies any visual hallucinations [and denies any auditory hallucinations] Though content/process: [There is no evidence of any delusional thought content and thought process is linear and goal-directed.] Memory and concentration: AOX3, grossly intact for the purposes of this session. Can spell "WORLD" backwards Judgment and insight: poor STRENGTHS/WEAKNESSES: strength is that patient is [resilient]. Weakness is that patient [has poor judgment and is impulsive] INTELLECT: [average] IMPRESSIONS: bipolar disorder, type 1 alcohol use disorder, legal problems nicotine dependance non adherence to medication PLAN: -Patient is admitted under [involuntary] status to MHU for stabilization of psychiatric symptoms and safety. Patient has [not] signed [adult voluntary form , and has signed medication consent] and is placed in patient's chart. [A second certification was completed and along with petition will be filed for court.] -Medications : Will start patient on Depakote 1000mg qhs for mood stabilization, Abilify Mainntena 400 im, monthly last dose on 03/14 Next due 04/11 Lexapro 10mg daily for mood/anxiety, naltrexone 50mg po daily for alcohol cravings, trazodone 50mg mg po qhs prn -Ativan [and Haldol] PRN for agitation/aggression -Check Depakote level tomorrow -Patient was informed of the risks, benefits and side effects of the medication and patient verbally consented to taking the medications. -Internal Medicine consult to perform medical evaluation and physical. -NRT - [nicotine patch] -SW on board for discharge planning. Encourage patient to participate in groups to work on coping skills. [Will await deferral and court date.] [] 03/27/24 12:44
[2024-03-27] MEDS: ESCITALOPRAM 10 MG TAB PO SCH (13:48)
[2024-03-27] MEDS: NALTREXONE HCL 50 MG TAB PO SCH (13:48)
[2024-03-27] MEDS: DIVALPROEX ER 500 MG TAB.ER.24H PO SCH (21:08)
[2024-03-28 07:50] LABS: Appearance,Urine Clear (Clear); Bilirubin,Urine Negative (Negative); Blood,Urine Negative (Negative); Color,Urine Yellow; Glucose,Urine (UA) Negative (Negative); Ketones,Urine Negative (Negative); Leukocyte Esterase,Urine Trace (Negative); Mucus,Urine Many /hpf; Nitrite,Urine Negative (Negative); Protein,Urine Trace (Negative); RBC,Urine 2 /hpf (0-5); Specific Gravity,Urine 1.029 (1.001-1.035); Squamous Epithelial Cell,Urine <1 /hpf (0-4); WBC,Urine 2 /hpf (0-5)
--- NOTE | 2024-03-28 09:16 | P.PN ---
Progress Note - Text Progress Note Date: 03/28/24 Interval history: Patient was seen today for psychiatric follow up. Patient appears to be fairly calm today, he claims that he is feeling a bit better, spoke with his father over the phone. He also states that he will be staying at the [facility] again when he is discharged. Denies any racing thoughts today, states that he slept about 7 or 8 hours last night. He reflected back on his medications and believes that it is helping him. He was told that the deferral will be today later on in the evening with the collections attorney. He states that he plans to defer. At this time he is denying any suicidal homicidal ideations intent or plan denying any auditory or visual elucidation's. MENTAL STATUS EXAM: General Appearance: Patient appears to be stated age is alert, directable, and attempts to cooperate. Patient appears to have good hygiene and grooming. Long curly hair, leiva, wearing his own clothes. Behavior: Patient is seated without any agitated behavior. Times to cooperate. Speech: Patient's speech is fluent and nonpressured. Mood/Affect: Patient reports their mood is ok, affect is congruent and constricted. Suicidality/Homicidality: Patient denies having any homicidal ideation intent or plan. Denies any suicidal ideations intent or plan Perceptions: Patient denies any visual hallucinations and denies any auditory hallucinations Though content/process: There is no evidence of any delusional thought content and thought process is linear and goal-directed. More future oriented today Memory and concentration: AOX3, grossly intact for the purposes of this session. Can spell "WORLD" backwards Judgment and insight: Improving mildly IMPRESSIONS: bipolar disorder, type 1 alcohol use disorder, legal problems nicotine dependance non adherence to medication PLAN: -Patient is admitted under involuntary status to MHU for stabilization of psychiatric symptoms and safety. Patient has not signed adult voluntary form , and has signed medication consent and is placed in patient's chart. -Medications : Depakote 1000mg qhs for mood stabilization, Abilify Mainntena 400 im, monthly last dose on 03/14 Next due 04/11 Lexapro 10mg daily for mood/anxiety, naltrexone 50mg po daily for alcohol cravings, trazodone 50mg mg po qhs prn -Ativan and Haldol PRN for agitation/aggression -Pending Depakote level -NRT -nicotine patch -SW on board for discharge planning. Encourage patient to participate in groups to work on coping skills. Patient will have deferral later on this evening with collections attorney. If patient defers then plan for discharge tomorrow.
[2024-03-28 11:25] LABS: Urine Alcohol Negative (Negative); Urine Barbiturate Negative (Negative); Urine Cocaine Negative (Negative); Urine Methadone Negative (Negative); Urine Opiates Negative (Negative); Urine Phencyclidine Negative (Negative)
[2024-03-28 12:05] LABS: Valproic Acid (Depakene) 33.5 ug/mL
[2024-03-28 21:33] LABS: Chol/HDL Ratio 4.39 Ratio
[2024-03-29 07:18] VITALS: BP 136/86; PULSE 89; RESP 16; TEMP 98.1
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
== END 2024-03-29 12:38 | disposition home or self-care (01) | DRG 753 ==
LOC: EC 23:01 → 3MHU 03-27 05:36
PROVIDERS: ADMIT Psychiatry & Neurology Psychiatry; ATTEND Psychiatry & Neurology Psychiatry
DX: F31.9 Bipolar disorder, unspecified (principal); Z91.148 Patient's other noncompliance with medication regimen for other reason; F10.10 Alcohol abuse, uncomplicated; F20.9 Schizophrenia, unspecified; F12.10 Cannabis abuse, uncomplicated; I10 Essential (primary) hypertension; F41.9 Anxiety disorder, unspecified; Z72.0 Tobacco use; Z79.899 Other long term (current) drug therapy; Z59.01 Sheltered homelessness; Z91.51 Personal history of suicidal behavior; Z65.3 Problems related to other legal circumstances; Z71.41 Alcohol abuse counseling and surveillance of alcoholic; Z71.51 Drug abuse counseling and surveillance of drug abuser
CPT/HCPCS: 80053; 80061; 80164; 80306; 81001; 82075; 83036; 84443; 85025; 87636; 99285

== ENCOUNTER 2024-11-26 10:07 | Emergency (ER) | payer BC, MEDICAID, OTHER ==
--- NOTE | 2024-11-26 11:14 | ED ---
Eye Problem HPI - General Chief complaint: Eye Problems Stated complaint: Foreign obj in L eye Time Seen by Provider: 11/26/24 10:27 Source: patient, RN notes reviewed Mode of arrival: ambulatory Limitations: no limitations - History of Present Illness Initial comments: This is a 34-year-old male presenting with foreign body in left eye x 2 weeks. Patient states he smashed a window with shards of glass injuring his left eye subsequent pain and inability to flush out. Patient states pain and vision are worsening. 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 Patient also endorses increased head pressure due to the pain. Endorses use of contacts and he is up-to-date with tetanus vaccination. MD chief complaint: eye pain, eye redness, eye injury, vision change, foreign body Onset/Timin -: week(s) Onset Description: sudden Location: left eye If Injury: direct trauma Eye Symptoms: redness, pain, foreign body sensation, discharge, decreased vision, blurry vision Severity scale (1-10): 10 If Pain, Quality: sharp Consistency: constant Context: contact lens use, trauma, injury Associated Symptoms: headache Treatments Prior to Arrival: other (Oral antibiotics) - Related Data Previous Rx's Medication Instructions Recorded ARIPiprazole IM [Abilify Maintena] 400 mg IM QMONTHLY #1 each 03/29/24 Divalproex ER [Depakote ER] 1,000 mg PO HS 30 Days #60 tab 03/29/24 Escitalopram [Lexapro] 10 mg PO DAILY 30 Days #30 tab 03/29/24 Naltrexone HCl [Revia] 50 mg PO DAILY 30 Days #30 tab 03/29/24 Nicotine 14Mg/24Hr Patch [Habitrol] 1 patch TRANSDERM DAILY 14 Days 03/29/24 #14 patch Ofloxacin 0.3% Ophth Soln [Ocuflox 1 drops LEFT EYE DIRECTED #10 ml 11/26/24 Ophth Soln] prednisoLONE ACETATE 1% OPHTH 2 drops LEFT EYE Q6HR #10 ml 11/26/24 [Pred Forte 1%] Allergies Allergy/AdvReac Type Severity Reaction Status Date / Time No Known Allergies Allergy Verified 11/26/24 10:25 Review of Systems ROS Statement: Those systems with pertinent positive or pertinent negative responses have been documented in the HPI. ROS Other: All systems not noted in ROS Statement are negative. Past Medical History Past Medical History: Hypertension History of Any Multi-Drug Resistant Organisms: None Reported Past Surgical History: No Surgical Hx Reported Past Anesthesia/Blood Transfusion Reactions: No Reported Reaction Past Psychological History: Anxiety, Bipolar, Depression, Schizophrenia Smoking Status: Vaper Past Alcohol Use History: Rare Past Drug Use History: None Reported - Past Family History Family Additional Family Medical History / Comment(s): Denies any history of CAD General Exam Limitations: no limitations General appearance: alert, in no apparent distress Head exam: Present: atraumatic, normocephalic, normal inspection Eye exam: Present: PERRL, EOMI, conjunctival injection, periorbital tenderness (Patient has difficulty holding left eye open. Significant tenderness on and around eye. ), other (Snellen chart: R-20/20, L-20/200. Bilateral pressure 22. No obvious foreign body, corneal abrasion or Gudelia sign with Burks lamp.). Absent: scleral icterus, nystagmus, periorbital swelling Pupils: Present: unequal (Right pupil larger than left although both reactive to light), other ENT exam: Present: normal exam, mucous membranes moist Neck exam: Present: normal inspection. Absent: tenderness, meningismus, ly mphadenopathy Respiratory exam: Present: normal lung sounds bilaterally. Absent: respiratory distress, wheezes, rales, rhonchi, stridor Cardiovascular Exam: Present: regular rate, normal rhythm, normal heart sounds. Absent: systolic murmur, diastolic murmur, rubs, gallop, clicks GI/Abdominal exam: Present: soft, normal bowel sounds. Absent: distended, tenderness, guarding, rebound, rigid Extremities exam: Present: normal inspection, full ROM, normal capillary refill. Absent: tenderness, pedal edema, joint swelling, calf tenderness Back exam: Present: normal inspection Neurological exam: Present: alert, oriented X3, CN II-XII intact Psychiatric exam: Present: normal affect, normal mood Skin exam: Present: warm, dry, intact, normal color. Absent: rash Course Vital Signs 11/26/24 11/26/24 10:23 13:00 Temperature 98.5 F 98.4 F Pulse Rate 112 H 77 Respiratory 20 18 Rate Blood Pressure 168/107 160/89 O2 Sat by Pulse 98 100 Oximetry Medical Decision Making - Medical Decision Making Was pt. sent in by a medical professional or institution (SHANKAR Simpson, STOCK SPECULATOR, urgent care, hospital, or [facility]...) When possible be specific @ -[No] Did you speak to anyone other than the patient for history (EMS, parent, family, police, friend...)? What history was obtained from this source @ -[No] Did you review nursing and triage notes (agree or disagree)? Why? @ -[I reviewed and agree with nursing and triage notes] Were old charts reviewed (outside hosp., previous admission, EMS record, old EKG, old radiological studies, urgent care reports/EKG's, [facility] records)? Report findings @ -[No old charts were reviewed] Differential Diagnosis (chest pain, altered mental status, abdominal pain women, abdominal pain men, vaginal bleeding, weakness, fever, dyspnea, syncope, headache, dizziness, GI bleed, back pain, seizure, CVA, palpatations, mental health, musculoskeletal)? @ -Differential Headache: Migraine, tension, cluster, carbon monoxide, central venous thrombosis, pension karma temporal arteritis, acute closure glaucoma, foreign body, conjunctivitis, episcleritis, intercranial hemorrhage, mastoiditis, sinusitis, head injury, this is not meant to be an all-inclusive list. EKG interpreted by me (3pts min.). @ -Not done X-rays interpreted by me (1pt min.). @ -[None done] CT interpreted by me (1pt min.). @ -[None done] U/S interpreted by me (1pt. min.). @ -[None done] What testing was considered but not performed or refused? (CT, X-rays, U/S, labs)? Why? @ -[None] What meds were considered but not given or refused? Why? @ -[None] Did you discuss the management of the patient with other professionals (professionals i.e. SHANKAR Simpson, STOCK SPECULATOR, lab, RT, psych nurse, social and political studies professor, pipe layer, teacher, court registry officer, returned case inspector)? Give summary @ -[No] Was smoking cessation discussed for >3mins.? @ -[No] Was critical care preformed (if so, how long)? @ -[No] Were there social determinants of health that impacted care today? How? (Homelessness, low income, unemployed, alcoholism, drug addiction, transportation, low edu. Level, literacy, decrease access to med. care, [place] [facility], rehab)? @ -[No] Was there de-escalation of care discussed even if they declined (Discuss DNR or withdrawal of care, Hospice)? DNR status @ -[No] What co-morbidities impacted this encounter? (DM, HTN, Smoking, COPD, CAD, Cancer, CVA, ARF, Chemo, Hep., AIDS, mental health diagnosis, sleep apnea, morbid obesity)? @ -[None] Was patient admitted / discharged? Hospital course, mention meds given and route, prescriptions, significant lab abnormalities, going to OR and other pertinent info. @ -[hospital course] Undiagnosed new problem with uncertain prognosis? @ -[No] Drug Therapy requiring intensive monitoring for toxicity (Heparin, Nitro, Insulin, Cardizem)? @ -[No] Were any procedures done? @ -[No] Diagnosis/symptom? @ -[default] Acute, or Chronic, or Acute on Chronic? @ -Acute Uncomplicated (without systemic symptoms) or Complicated (systemic symptoms)? @ -Uncomplicated Side effects of treatment? @ -[No] Exacerbation, Progression, or Severe Exacerbation? @ -Exacerbation Poses a threat to life or bodily function? How? (Chest pain, USA, SC, pneumonia, PE, COPD, DKA, ARF, appy, cholecystitis, CVA, Diverticulitis, Homicidal, Suicidal, threat to staff... and all critical care pts) @ -Foreign body threatens vision in affected eye Disposition Clinical Impression: Acute iritis, Posterior synechiae (iris), left eye Disposition: HOME SELF-CARE Condition: Good Instructions (If sedation given, give patient instructions): Iritis (ED) Prescriptions: Ofloxacin 0.3% Ophth Soln [Ocuflox Ophth Soln] 1 drops LEFT EYE DIRECTED #10 ml prednisoLONE ACETATE 1% OPHTH [Pred Forte 1%] 2 drops LEFT EYE Q6HR #10 ml Is patient prescribed a controlled substance at d/c from ED?: No Referrals: [facility] [Primary Care Provider] - 1-2 days Ben Cifuentes DO [Doctor of Osteopathic Medicine] - 1-2 days Time of Disposition: 15:24
[2024-11-26] MEDS: FLUORESCEIN STRIPS 1 MG STRIP LEFT EYE ONE (11:49)
[2024-11-26] MEDS: TETRACAINE 0.5% OPHTH (PF) DROPS 4 ML BTL LEFT EYE STA (11:49)
[2024-11-26] MEDS: SODIUM CHLORIDE 0.9% IRRIG 1,000 ML BTL IRRIGATION ONE (11:49)
[2024-11-26 13:38] VITALS: RESP 18; TEMP 98.4
[2024-11-26] MEDS: CYCLOPENTOLATE 1% OPHTH SOLN 2 ML BTL LEFT EYE SCH (14:36)
[2024-11-26] MEDS: PHENYLEPHRINE 10% OPHTH DROPS 5 ML BTL LEFT EYE SCH (14:37)
--- NOTE | 2024-11-26 15:33 | P.CON ---
Consult Note - . Consult date: 11/26/24 Assessment/Plan:: 34 y/o male with 2 week history of glass in the OD eye, initially seen in urgent care then followed up with optometry. There he was begun on ofloxacin for the eye. Over the last couple of weeks has had an intermittent crescendo of pain, up to 10/10, and redness in the left eye. Also, feels that light is more irritating than normal. Begun also on oral amoxicillin 250mg. Has returned here today with increased concern about the eye pain. Initially seen in ER today with blurry vision of 20/200 in the uncorrected eye, is currently wearing an SCL in right. Patient feels his vision uncorrected is stable, despite the waxing/waning pain and symptoms. Va: OD 20/20 w/ correction; OS 20/200 w/oi correction Ext: unremarkable EOM: full Pupils: -APD Conj: no staining Cornea: clear OU, SCL in place on the right. Negative for staining on left. AC: OD unremarkable, OS with 1+ flare, trace flare Iris: posterior synechia @ 8 o/c Lens: clear Dilated: 2.5% neosynephrine, 1% cyclopentolate, OS @ 1515 hrs Vitreous: clear OS Optic nerve: s/f/p mac: bright FLR vasc: normal periphery: intact 360 A: 1) acute iritis, OS 2) posterior synechia, OS 3) photopsia, OS P: recommend follow up in 48. begin prednisolone acetate 1% 1 drop every hour while awake, left eye, until bed tonight, then 4 times daily thereafter. Add, 1% cyclopentolate 3 times daily in left eye. Continue with ofloxacin 1 drop left eye 3 times daily. Use topical artificial tears 20 minutes after the application of the prednisolone acetate to relieve any increasing dryness blurring or irritation. Thank you for this consultation.
[2024-11-26 15:43] VITALS: BP 148/80; PULSE 89
== END 2024-11-26 15:43 | disposition home or self-care (01) ==
LOC: EC 10:07
DX: H20.00 Unspecified acute and subacute iridocyclitis (principal); F17.290 Nicotine dependence, other tobacco product, uncomplicated
CPT/HCPCS: 99283